=== PATIENT | male | born 1960 | race Caucasian/White ===

== ENCOUNTER 2017-04-25 14:37 | Inpatient (IN) | payer BC ==
[2017-04-25 14:45] VITALS: BMI 29.2
--- NOTE | 2017-04-25 14:46 | PDOC ---
Rapid Medical Evaluation Time Seen by Provider: 04/25/17 14:42 Medical Evaluation: 04/25/17 14:43 I have performed a brief in-person evaluation of this patient. The patient presents with a chief complaint of:RUQ pain w/ n/v. Gallstone w/ evidence of acute majo on US done at urgent care on Sunday. Pt given report Sunday (has on his person). Unclear as to why pt waited so long to come in Pertinent physical exam findings:TTP to RUQ I have ordered the following:pre-op labs and US The patient will proceed to the ED for further evaluation. Discharge Disposition - Referrals Referrals: Chevy Epps MD [Primary Care Provider] - - Patient Instructions - Post Discharge Activity
--- NOTE | 2017-04-25 15:00 | PDOC ---
History of Present Illness <Jc Batista - Last Filed: 04/25/17 17:47> - General History Source: Patient Exam Limitations: No Limitations - History of Present Illness Initial Comments: 04/25/17 16:14 The patient is a 56 year old male, with a significant past medical history of gallstones who presents to the emergency department with RUQ abdominal pain. Patient reports pain began last week, intermittent, 5/10 in severity, radiating to chest, lower back and abdomen. Patient reports associated nausea and vomiting. Patient denies any alleviating factors however states it is exacerbated when eating. Patient states his pain has been progressively worsening. Patient notes he was seen by Urgent care and upon evaluation was found to have Cholecystitis via Abdomen US. Patient reports to the ED for further evaluation by PCP for further evaluation. He denies fever, chills, diarrhea or constipation. He denies chest pain, headache or dizziness. He denies dysuria, frequency, urgency or hematuria. Patient denies sick contacts or recent travel. Allergies: NKA Past surgical history: None Social history: Everyday smoker PCP: Dr. Epps <Peyton Bunch - Last Filed: 04/25/17 18:38> - General Chief Complaint: Pain Stated Complaint: SENT BY PCP Time Seen by Provider: 04/25/17 14:42 Past History - Past Medical History COPD: No GI Disorders: Yes (GB PROBLEMS) - Suicide/Smoking/Psychosocial Hx Smoking History: Current every day smoker Number of Cigarettes Smoked Daily: 10 Information on smoking cessation initiated: No Hx Alcohol Use: Yes (SOCIAL) Drug/Substance Use Hx: No Substance Use Type: None <Jc Batista - Last Filed: 04/25/17 17:47> <Peyton Bunch - Last Filed: 04/25/17 18:38> - Past Medical History Allergies/Adverse Reactions: Allergies Allergy/AdvReac Type Severity Reaction Status Date / Time No Known Allergies Allergy Verified 04/25/17 18:06 Home Medications: Ambulatory Orders NK [No Known Home Medication] 04/25/17 Review of Systems - Review of Systems Able to Perform ROS?: Yes Comments:: 04/25/17 16:17 CONSTITUTIONAL: No fever, no chills, no fatigue EYES: No visual changes ENT: No ear pain, no sore throat CARDIOVASCULAR: No chest pain, no palpitations RESPIRATORY: No cough, no SOB GI: +RUQ abdominal pain, nausea,vomiting. No constipation, no diarrhea GENITOURINARY: No dysuria, no frequency, no hematuria MUSKULOSKELETAL: No back pain, no joint pain, no myalgias SKIN: No rash NEURO: No headache <Peyton Bunch - Last Filed: 04/25/17 18:38> *Physical Exam - Vital Signs Last Vital Signs Temp Pulse Resp BP Pulse Ox 97.1 F L 97 H 20 146/88 98 04/25/17 14:40 04/25/17 14:40 04/25/17 14:40 04/25/17 14:40 04/25/17 14:40 <Jc Batitsa - Last Filed: 04/25/17 17:47> - Vital Signs Last Vital Signs Temp Pulse Resp BP Pulse Ox 97.1 F L 97 H 20 146/88 98 04/25/17 14:40 04/25/17 14:40 04/25/17 14:40 04/25/17 14:40 04/25/17 14:40 - Physical Exam Comments: 04/25/17 16:19 CONSTITUTIONAL: Well-appearing; well-nourished; in no apparent distress HEAD: Normocephalic; atraumatic EYES: PERRL; EOM intact. No scleral icterus. ENMT: External appears normal; normal oropharynx. +Moist mucous membranes. NECK: Supple; nontender; no cervical lymphadenopathy CARD: Normal S1, S2; no murmurs, rubs, or gallops RESP: Normal chest excursion with respiration; breath sounds clear and equal bilaterally; no wheezes, rhonchi, or rales ABD: +De La Fuente signs equivical. +RUQ tenderness. Soft, non-distended; no palpable organomegaly, no palpable hernias EXT: Normal ROM in all four extremities; non-tender to palpation; distal pulses intact SKIN: Warm, dry, no rash NEURO: No focal neurological deficiencies. <Julio CPeyton - Last Filed: 04/25/17 18:38> Heart Score/ECG Review #1 04/25/17 18:37 ECG Reviewed by me Vent rate 83 bpm. Normal sinus rhythm. Normal ECG <Peyton Bunch - Last Filed: 04/25/17 18:38> ED Treatment Course - LABORATORY CBC & Chemistry Diagram: 04/25/17 15:14 04/25/17 15:14 <Jc Batista - Last Filed: 04/25/17 17:47> - LABORATORY CBC & Chemistry Diagram: 04/25/17 15:14 04/25/17 15:14 - ADDITIONAL ORDERS Additional order review: Laboratory Results 04/25/17 04/25/17 15:14 15:14 Sodium 138 Potassium 4.2 Chloride 104 Carbon Dioxide 27 Anion Gap 7 L BUN 14 Creatinine 0.9 Creat Clearance w eGFR > 60 Random Glucose 86 Calcium 9.1 Total Bilirubin 0.3 AST 25 ALT 46 Alkaline Phosphatase 127 H Total Protein 7.9 Albumin 4.2 Lipase 199 04/25/17 15:14 RBC 5.10 MCV 87.5 MCHC 35.1 RDW 12.7 MPV 6.9 L Neutrophils % 59.8 Lymphocytes % 28.9 Monocytes % 7.3 Eosinophils % 3.4 Basophils % 0.6 <Peyton Bunch - Last Filed: 04/25/17 18:38> Medical Decision Making - Medical Decision Making 04/25/17 17:48 Patient is a 56-year-old male with history of cholelithiasis who presents to the ER with recurrent right upper quadrant pain, numerous episodes of nonbloody , nonbilious vomiting over the past several days, leukocytosis, elevation of alkaline phosphatase and and not mobile gallstone within the neck of the gallbladder. Patient's symptoms are consistent with acute cholecystitis. We'll administer antibiotics, will consult surgery, will admit. <Jc Batista - Last Filed: 04/25/17 17:47> - Medical Decision Making 04/25/17 16:20 Abdominal US preformed at [facility] Impression: A gallstone is seen in the fundus of the gallbladder and on ein the neck of the gallbladder. There appears to be wall thickening. The findings are consistent with cholecystitis. There is fatty infiltration of the liver. Read by Arnol Hearn MD 04/25/17 17:14 Supriya paged via phone answering service. Awaiting call back. 04/25/17 17:21 Supriya returned the page and the patients case was discussed. <Peyton Bunch - Last Filed: 04/25/17 18:38> *DC/Admit/Observation/Transfer - Discharge Dispostion Admit: Yes - Attestations Physician Attestion: 04/25/17 17:47 The documentation was prepared by the scribe under my direct supervision. I have reviewed the documentation which correctly represents the findings, medical decision-making and critical action taken by me. <Jc Batista - Last Filed: 04/25/17 17:47> - Attestations Scribe Attestion: 04/25/17 16:20 Documentation prepared by Peyton Bunch, acting as medical apparatus model maker for Jc Batista MD. <Peyton Bunch - Last Filed: 04/25/17 18:38> Diagnosis at time of Disposition: Cholecystitis, acute - Discharge Dispostion Condition at time of disposition: Fair
[2017-04-25 15:29] LABS: BASOPHIL 0.6 % (0-2.0); EOSINOPHIL 3.4 % (0-4.5); MCH 30.7 pg (25.7-33.7); MCHC 35.1 g/dl (32.0-35.9); MEAN CELL VOLUME 87.5 fl (80-96); MEAN PLT VOLUME 6.9 fl (7.5-11.1); NEUTROPHILS 59.8 % (42.8-82.8); PLATELET COUNT 348 K/MM3 (134-434); RDW 12.7 % (11.9-15.9); WHITE BLOOD COUNT 15.8 K/mm3 (4.0-10.0)
[2017-04-25] MEDS ORDERED: KETOROLAC TROMETHAMINE 15 MG/ML VIAL IVPUSH ONE (15:41)
[2017-04-25] MEDS ORDERED: SODIUM CHLORIDE 1,000 ML IV STA (15:41)
[2017-04-25 15:46] LABS: ALBUMIN 4.2 g/dl (3.4-5.0); ANION GAP 7 (8-16); CALCIUM 9.1 mg/dL (8.5-10.1); CO2 27 mmol/L (21-32); CREATININE 0.9 mg/dL (0.7-1.3); GLUCOSE,RANDOM 86 mg/dL (74-106); SGOT/AST 25 U/L (15-37); SGPT/ALT 46 U/L (12-78); TOT PROT 7.9 g/dl (6.4-8.2)
[2017-04-25 15:51] LABS: ALK PHOS 127 U/L (45-117); BILIRUBIN,TOTAL 0.3 mg/dL (0.2-1.0)
[2017-04-25 16:01] LABS: INR 0.97 (0.82-1.09)
[2017-04-25] MEDS ORDERED: KETOROLAC TROMETHAMINE 15 MG/ML VIAL ONE (16:54)
[2017-04-25] MEDS ORDERED: METRONIDAZOLE 500 MG PREMIXED 500 MG/100 ML MG IVPB ONE ×2 (17:24→17:54)
[2017-04-25] MEDS ORDERED: LEVOFLOXACIN 500 MG IVPB 500 MG/100 ML BAG IVPB ONE (17:24)
[2017-04-25] MEDS: DEXTROSE 5%-0.45% SALINE 1,000 ML IV SCH (18:01)
[2017-04-25] MEDS: METRONIDAZOLE PREMIXED IVPB 250 MG/50 ML MG IVPB SCH ×2 (18:02→18:08)
[2017-04-25] MEDS ORDERED: HYDROmorphone HCL CARPU-JECT 1 MG/1 ML DISP.SYRIN IVPB PRN (22:00)
[2017-04-26] MEDS: METRONIDAZOLE PREMIXED IVPB 250 MG/50 ML MG IVPB SCH ×3 (01:51→19:57)
[2017-04-26 07:20] LABS: BASOPHIL 0.7 % (0-2.0); EOSINOPHIL 3.8 % (0-4.5); MCH 29.8 pg (25.7-33.7); MCHC 34.2 g/dl (32.0-35.9); MEAN PLT VOLUME 6.7 fl (7.5-11.1); PLATELET COUNT 333 K/MM3 (134-434); RDW 12.8 % (11.9-15.9); WHITE BLOOD COUNT 14.2 K/mm3 (4.0-10.0)
[2017-04-26 07:46] LABS: ALBUMIN 3.8 g/dl (3.4-5.0); ANION GAP 10 (8-16); CALCIUM 8.8 mg/dL (8.5-10.1); CO2 23 mmol/L (21-32); GLUCOSE,RANDOM 96 mg/dL (74-106)
[2017-04-26 07:50] LABS: ALK PHOS 113 U/L (45-117); BILIRUBIN,TOTAL 0.6 mg/dL (0.2-1.0); CREATININE 0.9 mg/dL (0.7-1.3); SGOT/AST 29 U/L (15-37); SGPT/ALT 48 U/L (12-78); TOT PROT 7.3 g/dl (6.4-8.2)
--- NOTE | 2017-04-26 07:55 | HP ---
Admitting History and Physical - Admission Chief Complaint: 56 y.o M had 4 episodes of recurrent epigastric pain and vomiting. Outside GB US demonstrated gallstone at the neck of the GB. The patient presented to the office yesterday with more epigastriv pain, N/V and was sent to [facility] ER. History of Present Illness: Toe fracture 12/25 Smoking addiction. 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: No: Alzheimer's, CVA, Dementia, Migraine, Multiple Sclerosis, Peripheral Neuropathy, Parkinson's, Seizure, Syncope, TIA, Vertigo, Other Cardiovascular: No: AFIB, Aneurysm, Aortic Insufficiency, Aortic Stenosis, CAD, CHF, Deep Vein Thrombosis, HTN, Hyperlipdemia, TN, Mitral Insufficiency, Mitral Stenosis, Murmur, Pulmonary Hypertension, Other Pulmonary: No: Asthma, Bronchitis, Cancer, COPD, O2 Dependent, Pneumonia, Previously Intubated, Pulmonary Embolus, Pulmonary Fibrosis, Sleep Apnea, Other Gastrointestinal: No: Ascites, Cancer, Constipation, Crohn's Disease, Diverticulitis, Diverticulosis, Esophageal Varices, Gastritis, GERD, GI Bleed, Hemorrhoids, Hiatal Hernia, Inflamatory Bowel Disease, Irritable Bowel Disease, Pancreatitis, Peptic Ulcer Disease, Ulcerative Colitis, Other Hepatobiliary: Yes: Cholelithiasis Renal/: No: Renal Failure, Renal Inusuff, BPH, Cancer, Hematuria, Hemodialysis , Neurogenic Bladder, Renal Calculi, UTI, Other Heme/Onc: No: Anemia, B12 Deficiency, Bleeding Disorder, Cancer, Current Chemotherapy, Current Radiation Therapy, Hemochromatosis, Hypercoaguable State, Myeloproliferative Synd, Sickle Cell Disease, Sickle Cell Trait, Thrombocytopenia, Other Infectious Disease: No: AIDS, C-Diff, Herpes Zoster, HIV, MRSA, STD's, Tuberculosis, VREF, Other Psych: No: Addictions, Anxiety, Bipolar, Depression, Panic, Psychosis, Schizophrenia, Other Musculoskeletal: No: Bursitis, Chronic low back pain, Hemiparesis, Hemiplegia, Osteoarthritis, Paraplegia, Other Rheumatology: No: Fibromyalgia, Gout, Lupus, Rheumatoid Arthritis, Sarcoidosis, Vasculitis, Other ENT: No: Allergic Rhinitis, Sinusitis, Other Endocrine: No: [place]'s Disease, Danelle's Disease, Diabetes Insipidus, Diabetes Mellitus, Hyperparathyroidism, Hyperthyroidism, Hypothyroidism, Osteopenia, SIADH, Other Dermatology: No: Basal Cell, Cellulitis, Eczema, Melanoma, Psoriasis, Squamous Cell, Other - Past Surgical History Past Surgical History: Yes: None - Smoking History Smoking history: Current every day smoker Aproximately how many cigarettes per day: 10 - Alcohol/Substance Use Hx Alcohol Use: Yes (SOCIAL) Home Medications - Allergies Allergies/Adverse Reactions: Allergies Allergy/AdvReac Type Severity Reaction Status Date / Time No Known Allergies Allergy Verified 04/25/17 18:06 - Home Medications Home Medications: Ambulatory Orders NK [No Known Home Medication] 04/25/17 Family Disease History - Family Disease History Family History: Unremarkable Review of Systems - Review of Systems Constitutional: reports: No Symptoms Eyes: reports: No Symptoms HENT: reports: No Symptoms Neck: reports: No Symptoms Cardiovascular: reports: No Symptoms Respiratory: reports: No Symptoms Gastrointestinal: reports: Abdominal Pain, Nausea, Vomiting Genitourinary: reports: No Symptoms Breasts: reports: No Symptoms Reported Musculoskeletal: reports: No Symptoms Integumentary: reports: No Symptoms Neurological: reports: No Symptoms Hematology/Lymphatic: reports: No Symptoms Psychiatric: reports: No Symptoms Physical Examination Vital Signs: Vital Signs Temperature 98.1 F 04/26/17 06:00 Pulse Rate 72 04/26/17 06:00 Respiratory Rate 18 04/26/17 06:00 Blood Pressure 102/62 04/26/17 06:00 O2 Sat by Pulse Oximetry (%) 96 04/25/17 21:00 Constitutional: Yes: Anxious, Moderate Distress Eyes: Yes: Conjunctiva Clear, EOM Intact HENT: Yes: Atraumatic, Normocephalic Neck: Yes: Supple, Trachea Midline Cardiovascular: Yes: Regular Rate and Rhythm Respiratory: Yes: Regular, CTA Bilaterally Gastrointestinal: Yes: Soft, Tenderness, Epigastrium (De La Fuente sign in the office yesterday-improved today.). No: Ascites, Pulsatile Mass Renal/: Yes: WNL Breast(s): Yes: WNL Musculoskeletal: Yes: Muscle Weakness Edema: No Peripheral Pulses WNL: Yes Integumentary: Yes: WNL Neurological: Yes: WNL ...Motor Strength: WNL Psychiatric: Yes: WNL Labs: CBC, BMP 04/26/17 06:00 Laboratory Results - last 24 hr 04/25/17 04/25/17 04/25/17 15:14 15:14 15:14 WBC 15.8 H RBC 5.10 Hgb 15.7 Hct 44.6 MCV 87.5 MCH 30.7 MCHC 35.1 RDW 12.7 Plt Count 348 MPV 6.9 L Neutrophils % 59.8 Lymphocytes % 28.9 Monocytes % 7.3 Eosinophils % 3.4 Basophils % 0.6 PT with INR INR Sodium 138 Potassium 4.2 Chloride 104 Carbon Dioxide 27 Anion Gap 7 L BUN 14 Creatinine 0.9 Creat Clearance w eGFR > 60 Random Glucose 86 Calcium 9.1 Total Bilirubin 0.3 AST 25 ALT 46 Alkaline Phosphatase 127 H Total Protein 7.9 Albumin 4.2 Lipase Blood Type B POSITIVE Antibody Screen Negative 04/25/17 04/25/17 04/26/17 15:14 15:14 06:00 WBC 14.2 H RBC 4.94 Hgb 14.7 Hct 43.0 MCV 87.0 MCH 29.8 MCHC 34.2 RDW 12.8 Plt Count 333 MPV 6.7 L Neutrophils % 59.0 Lymphocytes % 29.7 Monocytes % 6.8 Eosinophils % 3.8 Basophils % 0.7 PT with INR 11.00 INR 0.97 Sodium Potassium Chloride Carbon Dioxide Anion Gap BUN Creatinine Creat Clearance w eGFR Random Glucose Calcium Total Bilirubin AST ALT Alkaline Phosphatase Total Protein Albumin Lipase 199 Blood Type Antibody Screen Imaging - Results Ultrasound: Report Reviewed Problem List - Problems (1) Cholecystitis, acute Assessment/Plan: Elevated WBC-decreased from 15k to 14 k LFT today-P Spoke to Dr. Rodríguez reccholecystectomy. Code(s): K81.0 - ACUTE CHOLECYSTITIS
[2017-04-26] MEDS: LEVOFLOXACIN 500 MG IVPB 500 MG/100 ML BAG IVPB SCH (09:30)
--- NOTE | 2017-04-26 09:51 | CON.GI ---
Consult Consult Specialty:: GI: Dr. Doran for Dr. Gallagher Referred by:: Dr. Chevy Epps Reason for Consultation:: Abdominal pain - History of Present Illness Chief Complaint: "I have been having pain in my stomach on and off" History of Present Illness: 56M admitted through [facility] ER for evaluation of intermittent abdominal pain. Mr. Ochoa describes the pain as follows: Sharp, predominantly in the RUQ, radiating to the epigastrium and chest as well as right shoulder. It first occurred 04/13, about 1 hour after dinner, was associated with nausea leading to 2 episodes of vomiting and lasted throughout the night. It eventually subsided around 630AM. It recurred in a similar pattern 04/17 and again this past sunday , lasting all night long. He took two tylenol with some relief of the pain. He denies previous episodes or other GI complaints. He denies chronic reflux, dysphagia, odynophagia, change in bowel habits, rectal bleeding, diarrhea, constipation or vomiting of blood. Last night he had severe nausea prompting his ER visit. In the ER, he had blood work revealing milely elevated ALT and leukocytosis. US revealed fatty liver as well as a 1.4 x 1.1cm non mobile stone in the neck of the gallbladder +/- Sludge without wall thickening . The biliary ducts were not dilated. There is no family history of colorectal cancer or other GI malignancy and he had a colonoscopy 2 years ago performed by a [facility] Dr. Johnny Montoya. Mr. Ochoa was told he could repeat colonoscopy in 10 years. He currently denies abdominal pain and has been NPO. 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 (year): age 27 History of Recent Travel: Yes ([place] 11/25) Home Medications - Allergies Allergies/Adverse Reactions: Allergies Allergy/AdvReac Type Severity Reaction Status Date / Time No Known Allergies Allergy Verified 04/25/17 18:06 - Home Medications Home Medications: Ambulatory Orders NK [No Known Home Medication] 04/25/17 Family Disease History - Family Disease History Family Disease History: Other: Father ( 70: asthma complications), Mother ( alive: 78: healthy), Brother (3: healthy), Sister (3: healthy), Son (2: healthy) , Daughter (2: healthy) Other Family History: No family history of colorectal cancer or other GI malignancy Review of Systems - Review of Systems Constitutional: denies: Chills, Fever Cardiovascular: reports: Chest Pain (occurring with RUQ pain) Respiratory: denies: SOB Gastrointestinal: reports: Abdominal Pain, Bloating, Indigestion, Nausea, Vomiting. denies: Constipation, Diarrhea, Dysphagia, Melena, Rectal Bleeding, Vomiting Blood Genitourinary: denies: Discharge, Dysuria, Flank Pain, Frequency Musculoskeletal: reports: Back Pain. denies: Joint Pain Physical Exam-GI Vital Signs: Vital Signs Temperature 98.1 F 04/26/17 06:00 Pulse Rate 72 04/26/17 06:00 Respiratory Rate 18 04/26/17 06:00 Blood Pressure 102/62 04/26/17 06:00 O2 Sat by Pulse Oximetry (%) 96 04/25/17 21:00 Constitutional: Yes: Calm Eyes: No: Sclera Icterus Cardiovascular: Yes: Regular Rate and Rhythm. No: Murmur Respiratory: Yes: CTA Bilaterally Gastrointestinal Inspection: No: Distention, Scars ...Auscultate: Yes: Normoactive Bowel Sounds ...Palpate: No: Hepatomegaly, Splenomegaly, Tenderness ...Percussion: No: Tympanitic Edema: No (No LE edema) Neurological: Yes: Alert, Oriented Labs: CBC, BMP 04/26/17 06:00 04/26/17 06:00 INR, PTT INR 0.97 (0.82-1.09) 04/25/17 15:14 Hepatic Panel Total Bilirubin 0.6 mg/dL (0.2-1.0) D 04/26/17 06:00 AST 29 U/L (15-37) 04/26/17 06:00 ALT 48 U/L (12-78) 04/26/17 06:00 Alkaline Phosphatase 113 U/L (45-117) 04/26/17 06:00 Albumin 3.8 g/dl (3.4-5.0) 04/26/17 06:00 Imaging - Results Ultrasound: Report Reviewed Problem List - Problems (1) Recurrent biliary colic Assessment/Plan: 56M with clinical history of biliary colic +/- Cholecystitis Advise the following: NPO Currentlyn On IV Abx IV Hydration Surgical evaluation Code(s): K80.50 - CALCULUS OF BILE DUCT W/O CHOLANGITIS OR CHOLECYST W/O OBST (2) Fatty liver Assessment/Plan: Explained this to Mr. Ochoa. Advised dietary modifications/exercise and avoidance of alcohol and that he can follow-up regarding this with his phone engineer when acute issues are resolved. Code(s): K76.0 - FATTY (CHANGE OF) LIVER, NOT ELSEWHERE CLASSIFIED
--- NOTE | 2017-04-26 12:20 | EKG ---
Test Reason : Blood Pressure : / mmHG Vent. Rate : 083 BPM Atrial Rate : 083 BPM P-R Int : 154 ms QRS Dur : 088 ms QT Int : 348 ms P-R-T Axes : 042 060 037 degrees QTc Int : 408 ms NORMAL SINUS RHYTHM NORMAL ECG NO PREVIOUS ECGS AVAILABLE Confirmed by RAZ GONGORA MD ([id number]) on 04/26/2017 12:20:07 PM Referred By: Confirmed By:RAZ GONGORA MD
[2017-04-26] MEDS ORDERED: ROCURONIUM BROMIDE 50 MG/5 ML VIAL ONE (15:07)
[2017-04-26] MEDS ORDERED: MIDAZOLAM HCL 2 MG/2 ML SINGLE DOSE VIAL ONE (15:07)
[2017-04-26] MEDS ORDERED: fentaNYL CITRATE 250 MCG/5 ML VIAL ONE (15:07)
[2017-04-26] MEDS ORDERED: PROPOFOL 20 ML ONE ×2 (15:07→16:08)
[2017-04-26] MEDS ORDERED: SUCCINYLCHOLINE CHLORIDE 200 MG/10 ML VIAL ONE (15:08)
[2017-04-26] MEDS ORDERED: ePHEDrine SULFATE 50 MG/1 ML AMPULE ONE (15:09)
--- NOTE | 2017-04-26 15:09 | PN ---
Progress Note (short form) - Note Progress Note: surgery pt seen and examined. full consult dictated. 56m with known symptomatic cholelithiasis presents with abd pain, n/v, leukocytosis, and u/s showing stone impacted in neck of gb. On exam abd is soft, significant ruq tenderness with guarding. wbc unchanged and no improvement in symptoms despite npo and iv abx. Plan- clinically acute cholecystitis failing medical management. pt offered surgery vs percutaneous drainage and chooses surgery.will move in the direction of surgery.
--- NOTE | 2017-04-26 15:14 | OP ---
Operative Note - Note: Operative Date: 04/26/17 Pre-Operative Diagnosis: acute cholecystitis, cholelithiasis Operation: laparoscopic cholecystectomy, lavage Findings: thickened, inflamed gb Surgeon: Tahir Rodríguez Anesthesiologist/ABA THERAPIST: Luis Quevedo Specimens Removed: gb Estimated Blood Loss (mls): 10
[2017-04-26] MEDS ORDERED: ONDANSETRON 4 MG/2 ML VIAL IVPUSH PRN (15:15)
[2017-04-26] MEDS ORDERED: ACETAMINOPHEN 325 MG TABLET (FP) PO PRN (15:15)
[2017-04-26] MEDS ORDERED: oxyCODONE HCL 5 MG TABLET PO PRN (15:15)
[2017-04-26] MEDS ORDERED: HYDROmorphone HCL CARPU-JECT 1 MG/1 ML DISP.SYRIN IVPB PRN ×2 (15:19)
[2017-04-26] MEDS ORDERED: PROMETHAZINE HCL 25 MG/1 ML VIAL IVPUSH PRN (15:41)
[2017-04-26] MEDS ORDERED: LACTATED RINGERS SOLUTION 1,000 ML IV SCH (15:45)
[2017-04-26] MEDS ORDERED: NEOSTIGMINE METHYLSULFATE 0.5 MG/ML - 10 ML MDV ONE (16:11)
--- NOTE | 2017-04-26 16:19 | CONS ---
DATE OF CONSULTATION: 04/26/2017 REASON FOR CONSULTATION: Acute cholecystitis, cholelithiasis. This is an emergency room consultation at the request of the emergency room physician. The patient was subsequently admitted to the hospital and seen and examined as an inpatient. BRIEF HISTORY: A 66-year-old male with known symptomatic cholelithiasis, who had contemplated elective surgery in the past, states for the past several months has had right upper quadrant pain radiating to his back after eating fatty meals. Yesterday, he presented to the [facility] emergency room with severe pain that was unabating, with noted leukocytosis. He had an ultrasound that showed a stone impacted in the neck of his gallbladder. He was admitted for acute cholecystitis and placed on intravenous antibiotics and not given any food. Despite the intravenous antibiotics and the no food, his symptoms did not improve and his white blood cell count remained essentially the same overnight. He also had nausea and vomiting. At this point, request is made for surgical evaluation. His past medical history is otherwise negative. Past surgical history is nil. Social history is positive for tobacco, positive for occasional alcohol consumption. He has been encouraged to quit. He has no known drug allergies. He takes no medications. REVIEW OF SYSTEMS: General: Denies fatigue or malaise. Cardiac: Denies chest pain or palpitations. Respiratory: No shortness of breath or wheeze. Gastrointestinal: As stated in HPI. Denies diarrhea, denies blood in his stool, denies recent weight loss. Genitourinary: Denies dysuria. Musculoskeletal: Denies joint pain, joint swelling. Psychiatric: Denies anxiety, depression, or hearing voices. PHYSICAL EXAMINATION: General: This is a well-developed, well-nourished, 56-year-old male in no distress. Vital Signs: He is currently afebrile and has been since admission. HEENT: His head is normocephalic. His sclerae are anicteric. Neck: Supple. Chest: Clear. Abdomen: Soft. He has significant right upper quadrant tenderness with rebound. He has no obvious surgical scars and he has no obvious hernias. Extremities: His extremities have no edema. REVIEW OF HIS LABORATORIES: White blood cell count is currently 14.2, his chemistries unremarkable, with normal liver function tests. His alkaline phosphatase was mildly elevated last night at 127 but today it is normal. His lipase is also normal. His imaging is as in HPI. In addition, the gallbladder is noted to have no wall thickening or fluid, and the bile duct does not appear to be dilated. ASSESSMENT: This is a 56-year-old male with severe right upper quadrant pain radiating to his back, nausea, vomiting, leukocytosis, and also evidence of an impacted stone in the neck of his gallbladder. Clinically this is acute cholecystitis that is not improving despite medical management. At this point, the patient has been offered either surgery versus percutaneous drainage, and he prefers surgery. He prefers the more definitive treatment and he does not wish to be discharged home with a drain. He understands that since his gallbladder is acutely inflamed, that there is increased risk of conversion to open, and inadvertent injury. Risks and benefits of surgery have been explained to patient in detail. These are including but not limited to the possibility of conversion to open, the possibility of common bile duct injury, possibility of cystic duct stump leak, possibility of injury to viscera, possibility of blood loss requiring blood transfusion, possibility of future obstruction, possibility of future hernia, plus a multitude of medical risks including but not limited to cardiac, neurologic, pulmonary, and vascular complications, even . The patient understands these risks and is agreeable to surgery. His was present throughout the entire conversation and agrees. DO PRICE CAMPOS/[id number]
[2017-04-26] MEDS ORDERED: LIDOCAINE HCL 2% 100 MG/5 ML DISP.SYRIN ONE (16:30)
--- NOTE | 2017-04-26 16:46 | PN ---
Progress Note (short form) - Note Progress Note: surgery s/p cholecystectomy. finding confirmed acute cholecystitis. can likely d/c tomorrow on augmentin 875 bid for 5 days if well. ok to shower. ok to drive. no lifting. 2 weeks off work. f/u in 2 weeks [phone]
[2017-04-26] MEDS ORDERED: HYDROmorphone HCL CARPU-JECT 2 MG/1 ML DISP.SYRIN ONE (17:03)
[2017-04-26] MEDS: HYDROmorphone HCL CARPU-JECT 1 MG/1 ML DISP.SYRIN IVPUSH PRN ×4 (17:05→17:55)
--- NOTE | 2017-04-26 17:18 | OP ---
DATE OF OPERATION: 04/26/2017 PREOPERATIVE DIAGNOSES: Acute cholecystitis, cholelithiasis. POSTOPERATIVE DIAGNOSES: Acute cholecystitis, cholelithiasis. PROCEDURE: Laparoscopic cholecystectomy, lavage. SURGEON: Tahir Rodríguez DO WEBSPHERE PORTAL ARCHITECT: None as this was an emergency. ANESTHESIOLOGIST: Luis Quevedo MD SPECIMEN: Gallbladder. DRAINS: None. BLOOD LOSS: Minimal. DISPOSITION: Recovery in stable condition. INTRAOPERATIVE FINDINGS: A pale, edematous, distended, inflamed gallbladder. BRIEF HISTORY: This is a 56-year-old male who presented to [facility] with signs and symptoms of acute cholecystitis, as well as ultrasound evidence and leukocytosis to support this. He presents now for surgical management after failure of medical management. DESCRIPTION OF PROCEDURE: The patient was placed in supine position. After general anesthesia was initiated, the abdomen was prepped and draped in sterile fashion. The patient was already on Levaquin and Flagyl antibiotic. Next, a transverse incision was made infraumbilical with scalpel used to go through skin and subcutaneous tissue. The fascia was then lifted with Emily clamp. Veress needle was inserted, and pneumoperitoneum was created. Next, an 11-mm trocar was placed, followed by insertion of a 10-mm 0-degree laparoscope. Next, an additional 11-mm trocar was placed subxiphoid and two 5-mm trocars were placed in the right upper quadrant. One was midclavicular line, and one was anterior axillary line. At this point, attention was turned toward the gallbladder. There was omentum draping it, which was peeled off. The gallbladder was distended, edematous, and inflamed. Veress needle decompression was done in order to enable grasping of the gallbladder. Hydrops was noted. The fundus was then lifted cephalad, the infundibulum retracted laterally. The peritoneal was dissected down, exposing a generous cystic duct and cystic artery. Both were clipped and divided. The gallbladder was then liberated from the liver bed using electrocautery, and hemostasis was maintained using electrocautery. The gallbladder was removed through the infraumbilical trocar site in a specimen bag and sent to Pathology marked as specimen. A moderate fascial dilatation was required in order to deliver the gallbladder. A limited lavage was done, and our return was clear. Trocars were removed under direct visualization. No bleeding was noted. Pneumoperitoneum was released. At this point, the fascia of the infraumbilical trocar site was then closed with multiple interrupted 0 Vicryl sutures. The 4 skin incisions were closed with Biosyn, and Dermabond dressing was placed. At this point, the patient went to recovery room in stable condition. DO PRICE CAMPOS/[id number] MTDD
[2017-04-26] MEDS: CEFTRIAXONE 1 GM/50 ML PREMIX IVPB SCH (18:30)
[2017-04-26] MEDS: DEXTROSE 5%-0.45% SALINE 1,000 ML IV SCH (19:57)
[2017-04-26 21:14] LABS: INR 1.08 (0.82-1.09); PROTHROMBIN TIME (PATIENT) 12.2 SEC (9.98-11.88)
[2017-04-27] MEDS ORDERED: PT OWN MED DRAWER 7, Y5N ONE ×2 (01:04→09:43)
[2017-04-27] MEDS: METRONIDAZOLE PREMIXED IVPB 250 MG/50 ML MG IVPB SCH ×2 (02:13→09:46)
--- NOTE | 2017-04-27 08:21 | PN ---
Progress Note (short form) - Note Progress Note: The patient underwent lap majo yesterday. Today awake, alert, NAD Tolerating PO fluids. Spoke to Dr Rodríguez. Dx acute majo-. Pt can be D/c home today. Vital Signs Temp 98 F 04/27/17 05:41 Pulse 68 04/27/17 05:41 Resp 20 04/27/17 05:41 BP 111/59 04/27/17 05:41 Pulse Ox 96 04/26/17 19:27 Intake & Output 04/26/17 04/26/17 04/27/17 11:59 23:59 11:59 Intake Total 1150 1400 1000 Balance 1150 1400 1000 Intake: IV 1150 1100 900 D5-1/2Ns - 1,000 ml @ 100 1150 800 900 mls/hr IV ASDIR RICO Rx#: [id number] IVPB 300 100 Other: Voiding Method Toilet Toilet # Unmeasured Voids Void 1 2 2 Bowel Movement No Lungs clear. Heart s1s2 regular. Abdomen-soft. Normal BS Ext-no CCE Laboratory Results - last 24 hr 04/26/17 04/26/17 06:00 20:05 PT with INR 12.20 H INR 1.08 Sodium 137 Potassium 4.2 Chloride 104 Carbon Dioxide 23 Anion Gap 10 BUN 15 Creatinine 0.9 Creat Clearance w eGFR > 60 Random Glucose 96 Calcium 8.8 Total Bilirubin 0.6 D AST 29 ALT 48 Alkaline Phosphatase 113 Total Protein 7.3 Albumin 3.8 Current Active Problems Problem Status Onset Cholecystitis, acute Acute Fatty liver Acute Recurrent biliary colic Acute Plan D/c home Augmentin 875 BID x5 d F/u at the office Sx f/u Problem List - Problems (1) Cholecystitis, acute Code(s): K81.0 - ACUTE CHOLECYSTITIS
--- NOTE | 2017-04-27 08:23 | DS ---
Physical Examination Vital Signs: Vital Signs Temperature 98 F 04/27/17 05:41 Pulse Rate 68 04/27/17 05:41 Respiratory Rate 20 04/27/17 05:41 Blood Pressure 111/59 04/27/17 05:41 O2 Sat by Pulse Oximetry (%) 96 04/26/17 19:27 Constitutional: Yes: Well Nourished, No Distress, Calm Eyes: Yes: Conjunctiva Clear, EOM Intact HENT: Yes: Atraumatic, Normocephalic Neck: Yes: Supple, Trachea Midline Cardiovascular: Yes: Regular Rate and Rhythm Respiratory: Yes: Regular, CTA Bilaterally Gastrointestinal: Yes: Soft, Tenderness (post-op). No: Ascites, Palpable Mass Breast(s): Yes: WNL Musculoskeletal: Yes: WNL Edema: No Integumentary: Yes: WNL Wound/Incision: Yes: Clean/Dry Neurological: Yes: WNL ...Motor Strength: WNL Psychiatric: Yes: WNL Labs: CBC, BMP 04/26/17 06:00 04/26/17 06:00 Discharge Summary Reason For Visit: ACUTE CHOLECYSTITIS Current Active Problems Cholecystitis, acute (Acute) Fatty liver (Acute) Recurrent biliary colic (Acute) Condition: Fair - Instructions Referrals: Chevy Epps MD [Primary Care Provider] - Disposition: HOME - Home Medications Comprehensive Discharge Medication List: Ambulatory Orders NK [No Known Home Medication] 04/25/17
[2017-04-27] MEDS: CEFTRIAXONE 1 GM/50 ML PREMIX IVPB SCH (09:46)
[2017-04-27] MEDS: LEVOFLOXACIN 500 MG IVPB 500 MG/100 ML BAG IVPB SCH (09:46)
[2017-04-27] MEDS ORDERED: PANTOPRAZOLE SODIUM 40 MG VIAL IVPUSH SCH (10:00)
[2017-04-27] MEDS ORDERED: ENOXAPARIN NA (PORCINE) 40 MG/0.4 ML DISP.SYRIN SQ SCH (10:00)
[2017-04-27 11:44] VITALS: BP 116/61; PULSE 71; TEMP 97.9
--- NOTE | 2017-04-27 13:21 | PN ---
Progress Note (short form) - Note Progress Note: surgery pt seen and examined. feels well. no pain. tolerating diet. voiding. ambulating afebrile abd- soft, nt Plan- surgically stable for d/c. 5 days augmentin. no narcotics. ok to shower. no lifting. f/u in 2 weeks. [phone]
--- NOTE | 2017-04-30 16:39 | PATH ---
Surgical Pathology Report Patient Name: PRINCE HERNANDEZ [facility]. Rec. #: [id number] /Age/Gender: 1960 (Age: 56) / M Account: [id number] Location: [facility] MED/SURG Taken: 04/26/2017 Received: 04/27/2017 Reported: 04/30/2017 Physicians: Tahir Rodríguez M.D. Specimen(s) Received GALLBLADDER Clinical History Acute cholecystitis, acute cholelithiasis Final Diagnosis GALLBLADDER, LAPAROSCOPIC CHOLECYSTECTOMY: ACUTE AND CHRONIC CHOLECYSTITIS AND CHOLELITHIASIS. Electronically Signed Shalini Brewster M.D. Gross Description Received in formalin, labeled "gallbladder," is a 8.5 x 2.5 x 2.0 cm. gallbladder with a 0.2 cm. in length portion of cystic duct attached. The outer surface is gutierrez-brown and varies from smooth to shaggy. The lumen contains brown, tenacious bile as well as 2 yellow-gutierrez, irregular choleliths measuring 1.2 and 1.5 cm in greatest dimension. The mucosa is gutierrez and focally eroded. The wall of the gallbladder measures up to 0.4 cm. in thickness. Microfiche Camera Operator sections are submitted in one cassette. 04/27/201704/27/2017
--- NOTE | 2017-05-02 12:15 | EKG ---
Test Reason : Blood Pressure : / mmHG Vent. Rate : 066 BPM Atrial Rate : 066 BPM P-R Int : 152 ms QRS Dur : 090 ms QT Int : 382 ms P-R-T Axes : 049 062 033 degrees QTc Int : 400 ms NORMAL SINUS RHYTHM NORMAL ECG WHEN COMPARED WITH ECG OF 25-APR-2017 15:46, NO SIGNIFICANT CHANGE WAS FOUND Confirmed by KAYLA LONGORIA MD ([id number]) on 05/02/2017 12:14:31 PM Referred By: Confirmed By:KAYLA LONGORIA MD
== END 2017-04-27 13:33 | disposition home or self-care (01) | DRG 419 ==
LOC: JER 14:37 → JERBED 17:49 → J7W 19:40
PROVIDERS: ADMIT Internal Medicine; ATTEND Internal Medicine
PROC: 0FT44ZZ Resection of Gallbladder, Percutaneous Endoscopic Approach (ICD-10-PCS; principal; 2017-04-26 14:00)
DX: K80.00 Calculus of gallbladder with acute cholecystitis without obstruction (principal); F17.210 Nicotine dependence, cigarettes, uncomplicated; K76.0 Fatty (change of) liver, not elsewhere classified
CPT/HCPCS: 36415; 71010-TC; 76705-TC; 80053; 83690; 85025; 85610; 86850; 86900; 86901; 87040; 88304-TC; 93005; 93010; 99283-25

== ENCOUNTER 2017-09-27 13:29 | Emergency (ER) | payer BC ==
[2017-09-27 13:36] VITALS: BMI 30.4
[2017-09-27 14:37] LABS: BASO % 0.8 % (0-2.0); EOS % 8.4 % (0-4.5); HEMATOCRIT 43.5 % (35.4-49); HEMOGLOBIN 15.1 GM/dL (11.7-16.9); MCH 30.6 pg (25.7-33.7); MCHC 34.7 g/dl (32.0-35.9); MEAN CELL VOLUME 88.3 fl (80-96); MEAN PLT VOLUME 6.8 fl (7.5-11.1); MONO % 5.3 % (3.8-10.2); NEUT % 56.5 % (42.8-82.8); PLATELET COUNT 286 K/MM3 (134-434); RBC 4.93 M/mm3 (4.00-5.60); RDW 13.2 % (11.9-15.9); WHITE BLOOD COUNT 12.5 K/mm3 (4.0-10.0)
[2017-09-27 15:07] LABS: ALBUMIN 4.2 g/dl (3.4-5.0); ANION GAP 8 (8-16); BILIRUBIN,TOTAL 0.5 mg/dL (0.2-1.0); BLOOD UREA NITROGEN 17 mg/dL (7-18); CALCIUM 9.2 mg/dL (8.5-10.1); CHLORIDE 105 mmol/L (98-107); CO2 26 mmol/L (21-32); CREATININE 0.9 mg/dL (0.7-1.3); GLUCOSE,RANDOM 87 mg/dL (74-106); POTASSIUM 4.3 mmol/L (3.5-5.1); SGOT/AST 22 U/L (15-37); SGPT/ALT 26 U/L (12-78); SODIUM 139 mmol/L (136-145); TOT PROT 7.6 g/dl (6.4-8.2)
[2017-09-27 15:09] LABS: ALK PHOS 126 U/L (45-117)
--- NOTE | 2017-09-27 15:14 | PDOC ---
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 Patient states left the area immediately and one upstairs symptoms subsided slightly but still states was dizzy especially upon movement. Patient now complaining of generalized generalized fatigue along with mild generalized dull pressure to his head. Patient denies difficulty breathing, visual changes, chest pain, shortness of breath or palpitations. Patient denies cardiac history and states is followed by Dr. Epps who recommended he go straight to the ER for further evaluation today when he spoke with him. Timing/Duration: 1-3 hours Severity: moderate Associated Symptoms: reports: headaches (mild dull generalized), nausea/ vomiting, weakness (mild generalized). denies: fever/chills, loss of appetite <Yolande Clark - Last Filed: 09/27/17 17:43> - General Chief Complaint: Lightheaded Stated Complaint: SENT BY PCP:DIZZINESS Time Seen by Provider: 09/27/17 14:01 Past History <Castillo Toro - Last Filed: 09/27/17 16:10> - Travel Traveled outside of the country in the last 30 days: No - Past Medical History COPD: No GI Disorders: Yes (GB PROBLEMS) - Suicide/Smoking/Psychosocial Hx Smoking History: Current every day smoker Number of Cigarettes Smoked Daily: 10 Information on smoking cessation initiated: Yes Hx Alcohol Use: No Drug/Substance Use Hx: No Substance Use Type: None Patient Lives Alone: No Lives with/in: spouse/SO <Yolande Clark - Last Filed: 09/27/17 17:43> - Past Medical History Allergies/Adverse Reactions: Allergies Allergy/AdvReac Type Severity Reaction Status Date / Time No Known Allergies Allergy Verified 09/27/17 13:34 Home Medications: Ambulatory Orders NK [No Known Home Medication] 09/27/17 Review of Systems - Review of Systems Able to Perform ROS?: No Constitutional: No: Symptoms Reported HEENTM: No: Symptoms Reported Respiratory: No: Symptoms reported Cardiac (ROS): Yes: Lightheadedness ABD/GI: Yes: Nausea : No: Symptoms Reported Musculoskeletal: No: Symptoms Reported Integumentary: No: Symptoms Reported Neurological: Yes: Headache, Weakness, Dizziness Endocrine: No: Symptoms Reported Hematologic/Lymphatic: No: Symptoms Reported <Yolande Clark - Last Filed: 09/27/17 17:43> *Physical Exam - Vital Signs Last Vital Signs Temp Pulse Resp BP Pulse Ox 97.5 F L 75 18 141/96 98 09/27/17 13:31 09/27/17 13:31 09/27/17 13:31 09/27/17 13:31 09/27/17 13:31 <Castillo Toro - Last Filed: 09/27/17 16:10> - Vital Signs Last Vital Signs Temp Pulse Resp BP Pulse Ox 97.5 F L 75 18 141/96 98 09/27/17 13:31 09/27/17 13:31 09/27/17 13:31 09/27/17 13:31 09/27/17 13:31 - Physical Exam General Appearance: Yes: Nourished, Appropriately Dressed. No: Apparent Distress HEENT: positive: EOMI, MAO (3 mm bilateral), TMs Normal, Pharynx Normal. negative: Pale Conjunctivae Neck: positive: Supple Respiratory/Chest: positive: Lungs Clear, Normal Breath Sounds. negative: Respiratory Distress, Accessory Muscle Use Cardiovascular: positive: Regular Rhythm, Regular Rate. negative: Murmur Gastrointestinal/Abdominal: positive: Soft. negative: Tenderness Extremity: positive: Normal Capillary Refill. negative: Pedal Edema Integumentary: positive: Normal Color, Warm, Moist Neurologic: positive: Normal Mood/Affect, Motor Strength 5/5 (ambulatory) <Yolande Clark - Last Filed: 09/27/17 17:43> Heart Score/ECG Review - ECG Impressions Comment:: 09/27/17 16:10 Twelve-lead EKG was performed and reviewed by me. There is normal sinus rhythm with a normal rate. rate of 63 The axis is normal. The intervals are normal. There is normal R wave progression There are no ST or T wave abnormalities. Impression: Normal twelve-lead EKG <Castillo Toro - Last Filed: 09/27/17 16:10> - History History: Slightly suspicious - Electrocardiogram EKG: Normal - Age Age: 45-65 - Risk Factors Based on the list above the patient has:: No risk factors known - Troponin Troponin: </= normal limit - Score Heart Score - Total: 1 - ECG Intrepretation Rhythm: Regular Rhythm (normal sinus rhythm. Rate 63. Intervals are regular. No ST elevation or depression noted) <Yolande Clark - Last Filed: 09/27/17 17:43> ED Treatment Course - LABORATORY CBC & Chemistry Diagram: 09/27/17 14:29 09/27/17 14:29 - ADDITIONAL ORDERS Additional order review: Laboratory Results 09/27/17 09/27/17 14:46 14:29 Sodium 139 Potassium 4.3 Chloride 105 Carbon Dioxide 26 Anion Gap 8 BUN 17 Creatinine 0.9 Creat Clearance w eGFR > 60 POC Glucometer [id number] Random Glucose 87 Calcium 9.2 Total Bilirubin 0.5 AST 22 D ALT 26 D Alkaline Phosphatase 126 H Creatine Kinase 127 Troponin I < 0.02 Total Protein 7.6 Albumin 4.2 09/27/17 09/27/17 14:46 14:29 RBC 4.93 MCV 88.3 MCHC 34.7 RDW 13.2 MPV 6.8 L Neutrophils % 56.5 Lymphocytes % 29.0 Monocytes % 5.3 Eosinophils % 8.4 H D Basophils % 0.8 POC Glucometer 84.45634 <Castillo Toro - Last Filed: 09/27/17 16:10> - LABORATORY CBC & Chemistry Diagram: 09/27/17 14:29 09/27/17 14:29 - ADDITIONAL ORDERS Additional order review: 09/27/17 14:29 RBC 4.93 MCV 88.3 MCHC 34.7 RDW 13.2 MPV 6.8 L Neutrophils % 56.5 Lymphocytes % 29.0 Monocytes % 5.3 Eosinophils % 8.4 H D Basophils % 0.8 - RADIOLOGY Radiology Studies Ordered: Category Date Time Status HEAD CT WITHOUT CONTRAST [CT] Stat CT Scan 09/27/17 14:16 Ordered CHEST X-RAY PORTABLE* [RAD] Stat Radiology 09/27/17 14:16 Ordered <Yolande Clark - Last Filed: 09/27/17 17:43> Medical Decision Making - Medical Decision Making 09/27/17 16:05 Patient here with complaints of gradual onset of dizziness and nausea while using a cleaner and preparer in the boiler room. Patient states has been in the boiler room numerous times which does contain carbon monoxide detector. Patient states symptoms resolved moderately once he left the room but still complaining of mild weakness along with generalized dull pressure to his head. Patient ordered for cardiac workup including an EKG chest x-ray head CT and carboxyhemoglobin level. 09/27/17 17:39 Laboratory Tests 09/27/17 09/27/17 09/27/17 14:29 14:29 14:46 WBC 12.5 H Hgb 15.1 Hct 43.5 MCV 88.3 MCHC 34.7 Plt Count 286 Neutrophils % 56.5 Lymphocytes % 29.0 Monocytes % 5.3 Eosinophils % 8.4 H D ABG pH ABG pCO2 at Pt Temp ABG pO2 at Pt Temp Carboxyhemoglobin Methemoglobin Sodium 139 Potassium 4.3 Chloride 105 Carbon Dioxide 26 Anion Gap 8 BUN 17 Creatinine 0.9 POC Glucometer 84.05261 Random Glucose 87 Calcium 9.2 Total Bilirubin 0.5 AST 22 D ALT 26 D Alkaline Phosphatase 126 H Creatine Kinase 127 Troponin I < 0.02 Total Protein 7.6 Albumin 4.2 09/27/17 17:05 WBC Hgb Hct MCV MCHC Plt Count Neutrophils % Lymphocytes % Monocytes % Eosinophils % ABG pH 7.42 ABG pCO2 at Pt Temp 37.7 ABG pO2 at Pt Temp 72.9 L Carboxyhemoglobin 2.5 H Methemoglobin 1.2 Sodium Potassium Chloride Carbon Dioxide Anion Gap BUN Creatinine POC Glucometer Random Glucose Calcium Total Bilirubin AST ALT Alkaline Phosphatase Creatine Kinase Troponin I Total Protein Albumin Carboxy slightly elevated and requires no further intervention. Patient states that better but states when he turns his head from left to right or right to left he feels as if the room is "spinning. Patient has no complaints of nausea presently. Patient will be trialed with meclizine and discharged home with the same along with a neurology consult. Patient will be given copies of his labs including imaging. Patient to follow up with Dr. Epps. <Yolande Clark - Last Filed: 09/27/17 17:43> *DC/Admit/Observation/Transfer <Castillo Toro - Last Filed: 09/27/17 16:10> <Yolande Clark - Last Filed: 09/27/17 17:43> Diagnosis at time of Disposition: Dizziness - Discharge Dispostion Disposition: HOME Condition at time of disposition: Good - Referrals Referrals: Chevy Epps MD [Primary Care Provider] - Orlin Melissa DO [Staff Physician] - - Patient Instructions Printed Discharge Instructions: DI for Benign Paroxysmal Positional Vertigo, DI for Dizziness-Nonvertigo Additional Instructions: I have given you information regards to vertigo which I recommend that you read over. Please also understand when getting up from a lying position, to get up in increments and drink plenty of fluids prior to getting up if dizziness occurs. He may also take the meclizine as prescribed and please follow-up with the neurologist. If symptoms worsen please return to the nearest emergency room. otherwise he may also follow-up with your primary care physician. - Post Discharge Activity
[2017-09-27 16:54] VITALS: BP 124/72; PULSE 78; TEMP 98
[2017-09-27 17:21] LABS: ARTERIAL BLOOD GAS PCO2 37.7 mmHg (35-45); ARTERIAL BLOOD GAS PO2 72.9 mmHg (80-100); ARTERIAL BLOOD GAS pH 7.42 (7.35-7.45)
[2017-09-27 17:22] LABS: ARTERIAL BLD GAS O2 SATURATION 95.1 % (90-98.9); ARTERIAL BLOOD GAS BASE EXCESS 0.5 meq/l (-2-2); CARBOXYHEMOGLOBIN 2.5 gm% (0.5-2.0)
[2017-09-27] MEDS ORDERED: MECLIZINE HCL 25 MG TABLET (FP) PO ONE (17:40)
--- NOTE | 2017-09-28 09:56 | EKG ---
Test Reason : Blood Pressure : / mmHG Vent. Rate : 063 BPM Atrial Rate : 063 BPM P-R Int : 186 ms QRS Dur : 090 ms QT Int : 400 ms P-R-T Axes : 034 055 040 degrees QTc Int : 409 ms NORMAL SINUS RHYTHM NORMAL ECG WHEN COMPARED WITH ECG OF 26-APR-2017 16:44, NO SIGNIFICANT CHANGE WAS FOUND Confirmed by KARLA MONROE MD ([id number]) on 09/28/2017 9:56:15 AM Referred By: Confirmed By:KARLA MONROE MD
== END 2017-09-27 17:53 | disposition home or self-care (01) ==
LOC: JER 13:29
DX: H81.13 Benign paroxysmal vertigo, bilateral (principal); F17.210 Nicotine dependence, cigarettes, uncomplicated
CPT/HCPCS: 36415; 36600; 70450-TC; 71045-TC-FY; 80053; 82375; 82550; 82803; 82962; 83050; 84484; 85025; 93005; 93010; 99284-25